=== PATIENT | female | born 1945 | race Caucasian/White ===

== ENCOUNTER 2025-06-13 14:17 | Outpatient (CLI) | payer MEDICARE, BC ==
--- NOTE | 2025-06-13 17:32 | VASCULAR REPORT ---
CLINICAL HISTORY: Swelling of right calf TECHNIQUE: Color and duplex doppler imaging of the right lower extremity veins was performed. Vessel compression if possible was also performed. WID: COMPARISON: None FINDINGS: Contralateral left common femoral vein: Normal flow and phasicity. Right common femoral vein: Normal compressibility and flow. Right femoral vein: Normal compressibility and flow. Right popliteal vein: Normal compressibility and flow. Proximal calf veins are normally compressible. Moderate subcutaneous edema in the right calf. IMPRESSION: NO SONOGRAPHIC EVIDENCE FOR DEEP VENOUS THROMBOSIS IN THE RIGHT LOWER EXTREMITY VEINS. Moderate subcutaneous edema in the right calf
== END 2025-06-13 23:59 | disposition home or self-care (01) ==
LOC: VAS 14:17
PROVIDERS: ATTEND Family Medicine
DX: R22.41 Localized swelling, mass and lump, right lower limb (principal); R79.89 Other specified abnormal findings of blood chemistry
CPT/HCPCS: 93971